=== PATIENT | female | born 1945 | race Caucasian/White ===

== ENCOUNTER 2017-02-18 13:10 | Day surgery (SDC) | payer OTHER ==
--- NOTE | ~2017-02-18 | OP ---
Record Of Operation [facility] [address] [place]. [address] NAME: CONCEPCION RICHARD : 41 STATUS : [facility]#: [id number] AGE: 71 ADM/REG DATE : 02/18/17 MR#: [id number] REPORT SERV DATE: 03/07/17 DICTATED BY: JET YO II DATE: 03/07/17 REPORT STATUS : Draft TRANSCRIBED BY: KATIUSKA DATE: 03/07/17 DATE OF PROCEDURE: 02/18/2017 PREOPERATIVE DIAGNOSES: 1. Peripheral vascular disease. 2. Ischemic right leg with disabling claudication and intermittent rest pain, right foot. POSTOPERATIVE DIAGNOSES: 1. Peripheral vascular disease. 2. Ischemic right leg with disabling claudication and intermittent rest pain, right foot. PROCEDURES: 1. Abdominal aortogram. 2. Right leg angiogram. 3. Percutaneous angioplasty and stent placement of right superficial femoral artery. 4. Percutaneous angioplasty of right tibioperoneal trunk. ANESTHESIA: Local with MAC. ESTIMATED BLOOD LOSS: 25 mL. DETAILS OF PROCEDURE: The patient was taken to the operating room and placed in supine position on the table. Sedation was achieved and both groins were prepped and draped. Used ultrasound to identify the common femoral on the left side and performed a puncture, and placed a 5-Turkish sheath. Aortic catheter was placed and an abdominal aortogram was performed. This demonstrates a patent abdominal aorta. Calcification was seen. The iliacs were patent with somewhat small, but there was no focal stenosis seen. We then passed a catheter into the right common femoral, and a right leg angiogram demonstrates a patent common profunda and superficial femoral artery. There was a critical stenosis in the superficial femoral more than 90% in the midportion, and then distally there was severe calcium noted within this and two areas of stenosis of more than 60%. Below this, the popliteal was patent, but no focal stenosis was seen. The anterior tibial was patent as a dominant runoff vessel. The tibioperoneal trunk is basically occluded with very little flow identified, and then below this, the posterior tibial is patent, but it is small throughout the leg. We then heparinized the patient. We passed a 6-Turkish sheath over the bifurcation. We were able to pass a wire and catheter through the SFA and then passed a wire through the stenosis and down into the distal portion of the superficial femoral artery. We then primarily stented the SFA. We placed two stents, one in the distal SFA and one in the mid SFA to treat both areas of stenosis. We post dilated this with a 4 mm balloon and completion angiogram demonstrates no further significant stenosis with good flow demonstrated distally. There was no dissection and there was no evidence of embolization. We then passed a catheter down to the below knee segment and we performed a magnified angiogram that demonstrates again what appears to be a near occlusion of the tibioperoneal trunk with severe stenosis throughout. I was able to pass a wire through this and we then angioplastied this down into the entire length of the tibioperoneal trunk using a 4 mm balloon. Completion angiogram demonstrates no further stenosis and excellent flow Record Of Operation [address] [address] NAME: CONCEPCION RICHARD : 41 STATUS : [facility] PAT#: [id number] AGE: 71 ADM/REG DATE : 02/18/17 MR#: [id number] REPORT SERV DATE: 03/07/17 DICTATED BY: JET YO II DATE: 03/07/17 REPORT STATUS : Draft TRANSCRIBED BY: KATIUSKA DATE: 03/07/17 demonstrated distally. At this point, we performed an oblique angiogram of the right groin and this demonstrates an actual stenosis at the origin of the right SFA. Stenosis was more than 70%. This required additional stent placement. We advanced a 6 mm x 40 mm stent into the SFA and deployed this at the site of the stenosis. Completion angiogram now demonstrates rapid flow from the common femoral, down through the SFA into the popliteal. At this point, she had a pulse in her foot. We then removed all the wires and catheters and closed percutaneously. At the end of the procedure, patient was stable and tolerated it well. JANAE/KATIUSKA Jet Yo II, M.D. / [id number] CC: Melissa Sepulveda II, NP
[~2017-02-18 13:10] MED LIST: ACIDOPHILU2 PO; ALBUTEROL; ALBUTEROL5 INH; ASAB PO; BUM1 PO; BUM2 PO; CEFT5 PO; COREG6 PO; DUONEB INH; EVISTA60 PO; FLONASE NAS; HUMALOG SC; HUMI PO; HYGROTON 25 MG25 MG PO; INSNOV7030 SC; INSNOV7030 SQ; L40 PO; LANTUS SC; LEVOTHYROXIN25 MCG PO; LISINOPRIL40 MG PO; MAX1 IM; NEUR100 PO; NEUR300 PO; NORV10 PO; NOVOLOG 70/30 SC; NOVOLOG SC; NOVOPENMIX SC; P10 PO; P20 PO; PRAVAC PO; PREDNISONE 10 MG PO; PRIN10 PO; PRIN5 PO; PROAIR HFA INH; PROVENTSOL INH; T PO; TAMOXIFEN20 M1 PO; TUMSROLL PO; VANCO1P IV; ZESTRIL20 MG PO; ZITH250 PO; [UNRECOGNIZED DRUG - CODE] IV
[2017-02-18 14:09] LABS: HEMATOCRIT 29.6 % (36.0-48.0); HEMOGLOBIN 9.9 g/dL (12.0-16.0); MEAN CORPUSCULAR HEMOGLOB 29.5 pg (26.0-34.0); MEAN PLATELET VOLUME 11.6 fL (9.2-13.0); PLATELET COUNT 213 10/3/uL (150-400); RBC DISTRIBUTION WIDTH 14.5 % (12.0-16.0); RED CELL COUNT 3.36 10/6/uL (4.0-5.6)
[2017-02-18 14:10] LABS: MANUAL DIFF YES %; MEAN CORPUS HGB CONC 33.4 g/dL (32.0-36.0); MEAN CORPUSCULAR VOLUME 88.1 fL (80-100); WHITE BLOOD CELLS 8.7 10/3/uL (4.5-10.5)
[2017-02-18 14:24] LABS: CALCIUM, SERUM 8.5 MG/DL (8.5-10.4); CHLORIDE, SERUM 108 MMOL/L (96-112); CO2 (CARBON DIOXIDE) 29 MMOL/L (24-34); CREATININE 1.59 MG/DL (0.55-1.02); GFR AFRICAN AMERICAN 37 ML/MIN (>=60); GFR NON AFRICAN AMERICAN 32 ML/MIN (>=60); POTASSIUM, SERUM 4.2 MMOL/L (3.5-5.3); SODIUM, SERUM 144 MMOL/L (135-148)
[2017-02-18 14:25] LABS: BUN (BLOOD UREA NITROGEN) 32 MG/DL (6-23); GLUCOSE, SERUM 247 MG/DL (60-99)
[2017-02-18 14:31] LABS: BAND NEUTROPHILS 3 %; IMMATURE GRANS ABSOLUTE (CALC) 0.09 10/3/uL (0.0-0.11); LYMPHOCYTES 32 %; LYMPHOCYTES ABSOLUTE (CALC) 2.78 10/3/uL (0.67-4.30); METAMYELOCYTES 1 %; MONOCYTES 7 %; MONOCYTES ABSOLUTE (CALC) 0.61 10/3/uL (0.21-1.20); NEUTROPHILS ABSOLUTE (CALC) 5.22 10/3/uL (2.02-8.40); PLATELET ESTIMATE ADQ (ADEQUATE); RBC MORPHOLOGY NORM (NORMAL); SEGMENTED NEUTROPHIL (0) 57 %; TOTAL NUCLEATED CELLS 100
== END 2017-02-19 14:05 | disposition home or self-care (01) ==
LOC: SDC 13:10 → SSU1 16:37
PROVIDERS: Surgery
PROC: 047K3DZ Dilation of Right Femoral Artery with Intraluminal Device, Percutaneous Approach (ICD-10-PCS; principal; 2017-02-18 15:00)
PROC: 047T3ZZ Dilation of Right Peroneal Artery, Percutaneous Approach (ICD-10-PCS; 2017-02-18 15:00)
DX: I70.221 Atherosclerosis of native arteries of extremities with rest pain, right leg (principal); I99.8 Other disorder of circulatory system; E11.51 Type 2 diabetes mellitus with diabetic peripheral angiopathy without gangrene; I10 Essential (primary) hypertension; J44.9 Chronic obstructive pulmonary disease, unspecified; Z98.41 Cataract extraction status, right eye; Z98.42 Cataract extraction status, left eye; Z98.890 Other specified postprocedural states; Z87.891 Personal history of nicotine dependence; Z82.5 Family history of asthma and other chronic lower respiratory diseases; Z82.49 Family history of ischemic heart disease and other diseases of the circulatory system; Z83.3 Family history of diabetes mellitus; Z80.3 Family history of malignant neoplasm of breast; Z88.0 Allergy status to penicillin; Z79.82 Long term (current) use of aspirin; Z79.899 Other long term (current) drug therapy; Z79.891 Long term (current) use of opiate analgesic; Z88.8 Allergy status to other drugs, medicaments and biological substances
CPT/HCPCS: 37226; 37228; 75625; 75710; 80048; 82962; 85025; 93005; A9270-GY; C1725; C1760; C1769; C1876; C1894; J0360; J0690; J2270; J2405; J2550; J3010; Q9966